=== PATIENT | female | born 1990 | race Caucasian/White ===

== ENCOUNTER 2016-08-20 13:24 | Outpatient (CLI) | payer MEDICARE, MEDICAID | END 2016-08-20 13:25 | disposition home or self-care (01) | DX: Z79.01 Long term (current) use of anticoagulants (principal); Z95.4 Presence of other heart-valve replacement; I34.0 Nonrheumatic mitral (valve) insufficiency ==

== ENCOUNTER 2016-08-21 10:05 | Outpatient (CLI) | payer MEDICARE, MEDICAID | END 2016-08-21 10:06 | disposition home or self-care (01) | DX: Z79.01 Long term (current) use of anticoagulants (principal); Z95.4 Presence of other heart-valve replacement; I31.0 Chronic adhesive pericarditis ==

== ENCOUNTER 2016-08-21 19:56 | Emergency (ER) | payer MEDICARE, MEDICAID ==
[2016-08-21] MEDS ORDERED: SODIUM CHLORIDE 0.9% 1,000 ML IV ONE (20:27)
== END 2016-08-21 23:50 | disposition home or self-care (01) ==
DX: I95.9 Hypotension, unspecified (principal); N28.9 Disorder of kidney and ureter, unspecified; Z99.2 Dependence on renal dialysis; I31.0 Chronic adhesive pericarditis; Z95.4 Presence of other heart-valve replacement; Z79.01 Long term (current) use of anticoagulants

== ENCOUNTER 2016-08-31 11:08 | Outpatient (CLI) | payer MEDICARE, MEDICAID | END 2016-08-31 11:09 | disposition home or self-care (01) | DX: Z79.01 Long term (current) use of anticoagulants (principal); Z95.4 Presence of other heart-valve replacement; I31.0 Chronic adhesive pericarditis ==

== ENCOUNTER 2016-09-04 11:15 | Outpatient (CLI) | payer MEDICARE, MEDICAID | END 2016-09-04 11:16 | disposition home or self-care (01) | DX: Z79.01 Long term (current) use of anticoagulants (principal); Z95.4 Presence of other heart-valve replacement; I31.0 Chronic adhesive pericarditis ==

== ENCOUNTER 2016-09-12 12:01 | Outpatient (CLI) | payer MEDICARE, MEDICAID | END 2016-09-12 12:02 | disposition home or self-care (01) | DX: I31.0 Chronic adhesive pericarditis (principal); Z95.4 Presence of other heart-valve replacement; Z79.01 Long term (current) use of anticoagulants ==

== ENCOUNTER 2016-09-19 09:58 | Outpatient (CLI) | payer MEDICARE, MEDICAID | END 2016-09-19 09:59 | disposition home or self-care (01) | LOC: LAB 09:58 | PROVIDERS: ATTEND Pharmacist | DX: Z95.4 Presence of other heart-valve replacement (principal); I31.0 Chronic adhesive pericarditis; Z79.01 Long term (current) use of anticoagulants | CPT/HCPCS: 85610 ==

== ENCOUNTER 2016-09-26 13:16 | Outpatient (CLI) | payer MEDICARE, MEDICAID | END 2016-09-26 13:17 | disposition home or self-care (01) | LOC: LAB 13:16 | PROVIDERS: ATTEND Pharmacist | DX: I31.0 Chronic adhesive pericarditis (principal); Z95.4 Presence of other heart-valve replacement; Z79.01 Long term (current) use of anticoagulants | CPT/HCPCS: 85610 ==

== ENCOUNTER 2016-10-03 12:19 | Outpatient (CLI) | payer MEDICARE, MEDICAID | END 2016-10-03 12:20 | disposition home or self-care (01) | LOC: LAB 12:19 | PROVIDERS: ATTEND Pharmacist | DX: I31.0 Chronic adhesive pericarditis (principal); Z95.4 Presence of other heart-valve replacement; Z79.01 Long term (current) use of anticoagulants | CPT/HCPCS: 85610 ==

== ENCOUNTER 2016-10-22 12:40 | Outpatient (CLI) | payer MEDICARE, MEDICAID | END 2016-10-22 12:41 | disposition home or self-care (01) | LOC: LAB 12:40 | PROVIDERS: ATTEND Pharmacist | DX: I31.0 Chronic adhesive pericarditis (principal); Z95.4 Presence of other heart-valve replacement; Z79.01 Long term (current) use of anticoagulants | CPT/HCPCS: 85610 ==

== ENCOUNTER 2016-11-02 14:29 | Outpatient (CLI) | payer MEDICARE, MEDICAID | END 2016-11-02 14:30 | disposition home or self-care (01) | LOC: LAB 14:29 | PROVIDERS: ATTEND Pharmacist | DX: I31.0 Chronic adhesive pericarditis (principal); Z79.01 Long term (current) use of anticoagulants; Z95.4 Presence of other heart-valve replacement | CPT/HCPCS: 85610 ==

== ENCOUNTER 2016-11-19 14:14 | Outpatient (CLI) | payer MEDICARE, MEDICAID | END 2016-11-19 14:15 | disposition home or self-care (01) | LOC: LAB 14:14 | PROVIDERS: ATTEND Pharmacist | DX: I31.0 Chronic adhesive pericarditis (principal); Z95.4 Presence of other heart-valve replacement; Z79.01 Long term (current) use of anticoagulants | CPT/HCPCS: 85610 ==

== ENCOUNTER 2016-12-03 14:16 | Outpatient (CLI) | payer MEDICARE, MEDICAID | END 2016-12-03 14:17 | disposition home or self-care (01) | LOC: LAB 14:16 | PROVIDERS: ATTEND Pharmacist | DX: I31.0 Chronic adhesive pericarditis (principal); Z95.4 Presence of other heart-valve replacement; Z79.01 Long term (current) use of anticoagulants | CPT/HCPCS: 85610 ==

== ENCOUNTER 2016-12-13 13:44 | Outpatient (CLI) | payer MEDICARE, MEDICAID ==
--- NOTE | 2016-12-13 17:51 | XRAY Report ---
TWO-VIEW CHEST: 12/13/2016 CLINICAL INDICATION: Cough. COMPARISON: 08/21/2016 FINDINGS: Frontal and lateral views of the chest demonstrate changes of previous cardiac surgery. T here is a right basilar infiltrate present, with trace right effusion. No pneumothorax. IMPRESSION: RIGHT BASILAR INFILTRATE WITH TRACE RIGHT EFFUSION. JOB #: [id number] EXT JOB #:[id number]
== END 2016-12-13 13:45 | disposition home or self-care (01) ==
LOC: DI 13:44
PROVIDERS: ATTEND Family Medicine
DX: R05 Cough (principal)
CPT/HCPCS: 71020

== ENCOUNTER 2016-12-19 13:54 | Outpatient (CLI) | payer MEDICARE, MEDICAID | END 2016-12-19 13:55 | disposition home or self-care (01) | LOC: LAB 13:54 | PROVIDERS: ATTEND Pharmacist | DX: I31.0 Chronic adhesive pericarditis (principal); Z95.4 Presence of other heart-valve replacement; Z79.01 Long term (current) use of anticoagulants | CPT/HCPCS: 85610 ==

== ENCOUNTER 2017-01-09 14:56 | Outpatient (CLI) | payer MEDICARE, MEDICAID | END 2017-01-09 14:57 | disposition home or self-care (01) | LOC: LAB 14:56 | PROVIDERS: ATTEND Pharmacist | DX: I31.0 Chronic adhesive pericarditis (principal); Z95.4 Presence of other heart-valve replacement; Z79.01 Long term (current) use of anticoagulants | CPT/HCPCS: 85610 ==

== ENCOUNTER 2017-01-23 11:30 | Outpatient (CLI) | payer MEDICARE, MEDICAID | END 2017-01-23 11:31 | disposition home or self-care (01) | LOC: LAB 11:30 | PROVIDERS: ATTEND Pharmacist | DX: Z95.4 Presence of other heart-valve replacement (principal); Z79.01 Long term (current) use of anticoagulants; I31.0 Chronic adhesive pericarditis | CPT/HCPCS: 85610 ==

== ENCOUNTER 2017-01-30 16:12 | Outpatient (CLI) | payer MEDICARE, MEDICAID | END 2017-01-30 16:13 | disposition home or self-care (01) | LOC: LAB 16:12 | PROVIDERS: ATTEND Pharmacist | DX: I31.0 Chronic adhesive pericarditis (principal); Z79.01 Long term (current) use of anticoagulants; Z95.4 Presence of other heart-valve replacement | CPT/HCPCS: 85610 ==

== ENCOUNTER 2017-02-13 12:48 | Outpatient (CLI) | payer MEDICARE, MEDICAID | END 2017-02-13 12:49 | disposition home or self-care (01) | LOC: LAB 12:48 | PROVIDERS: ATTEND Pharmacist | DX: Z79.01 Long term (current) use of anticoagulants (principal); Z95.4 Presence of other heart-valve replacement; I31.0 Chronic adhesive pericarditis | CPT/HCPCS: 85610 ==

== ENCOUNTER 2017-03-26 09:49 | Outpatient (CLI) | payer MEDICARE, MEDICAID | END 2017-03-26 09:50 | disposition home or self-care (01) | LOC: LAB 09:49 | PROVIDERS: ATTEND Pharmacist | DX: I31.0 Chronic adhesive pericarditis (principal); Z95.4 Presence of other heart-valve replacement; Z79.01 Long term (current) use of anticoagulants | CPT/HCPCS: 85610 ==

== ENCOUNTER 2017-04-24 09:54 | Outpatient (CLI) | payer MEDICARE, MEDICAID | END 2017-04-24 09:55 | disposition home or self-care (01) | LOC: LAB 09:54 | PROVIDERS: ATTEND Pharmacist | DX: I31.0 Chronic adhesive pericarditis (principal); Z79.01 Long term (current) use of anticoagulants; Z95.4 Presence of other heart-valve replacement | CPT/HCPCS: 85610 ==

== ENCOUNTER 2017-05-23 09:46 | Outpatient (CLI) | payer MEDICARE, MEDICAID | END 2017-05-23 09:47 | disposition home or self-care (01) | LOC: LAB 09:46 | PROVIDERS: ATTEND Pharmacist | DX: Z79.01 Long term (current) use of anticoagulants (principal); Z95.4 Presence of other heart-valve replacement; I31.0 Chronic adhesive pericarditis | CPT/HCPCS: 85610 ==

== ENCOUNTER 2017-06-13 11:47 | Outpatient (CLI) | payer MEDICARE, MEDICAID | END 2017-06-13 11:48 | disposition home or self-care (01) | LOC: LAB 11:47 | PROVIDERS: ATTEND Pharmacist | DX: Z79.01 Long term (current) use of anticoagulants (principal); Z95.4 Presence of other heart-valve replacement; I31.0 Chronic adhesive pericarditis | CPT/HCPCS: 85610 ==

== ENCOUNTER 2017-06-28 12:21 | Outpatient (CLI) | payer MEDICARE, MEDICAID | END 2017-06-28 12:22 | disposition home or self-care (01) | LOC: LAB 12:21 | PROVIDERS: ATTEND Pharmacist | DX: I31.0 Chronic adhesive pericarditis (principal); Z79.01 Long term (current) use of anticoagulants; Z95.4 Presence of other heart-valve replacement | CPT/HCPCS: 85610 ==

== ENCOUNTER 2017-07-08 13:23 | Outpatient (CLI) | payer MEDICARE, MEDICAID ==
[2017-07-08 14:10] LABS: PT - PROTHROMBIN TIME 61.6 secs (9.9-12.6)
[2017-07-08 14:35] LABS: INR 5.8 (0.8-1.2)
== END 2017-07-08 13:24 | disposition home or self-care (01) ==
LOC: LAB 13:23
PROVIDERS: ATTEND Pharmacist
DX: I31.0 Chronic adhesive pericarditis (principal); Z79.01 Long term (current) use of anticoagulants; Z95.4 Presence of other heart-valve replacement
CPT/HCPCS: 36415; 85610

== ENCOUNTER 2017-07-10 09:53 | Outpatient (CLI) | payer MEDICARE, MEDICAID ==
[2017-07-10 10:41] LABS: INR 4.2 (0.8-1.2)
== END 2017-07-10 09:54 | disposition home or self-care (01) ==
LOC: LAB 09:53
PROVIDERS: ATTEND Pharmacist
DX: I31.0 Chronic adhesive pericarditis (principal); Z95.4 Presence of other heart-valve replacement; Z79.01 Long term (current) use of anticoagulants
CPT/HCPCS: 85610

== ENCOUNTER 2017-07-17 11:07 | Outpatient (CLI) | payer MEDICARE, MEDICAID ==
[2017-07-17 11:52] LABS: INR 4.2 (0.8-1.2); PT - PROTHROMBIN TIME 44.9 secs (9.9-12.6)
== END 2017-07-17 11:08 | disposition home or self-care (01) ==
LOC: LAB 11:07
PROVIDERS: ATTEND Pharmacist
DX: I31.0 Chronic adhesive pericarditis (principal); Z95.4 Presence of other heart-valve replacement; Z79.01 Long term (current) use of anticoagulants
CPT/HCPCS: 85610

== ENCOUNTER 2017-07-25 07:59 | Outpatient (CLI) | payer MEDICARE, MEDICAID | END 2017-07-25 08:00 | disposition home or self-care (01) | LOC: LAB 07:59 | PROVIDERS: ATTEND Pharmacist | DX: I31.0 Chronic adhesive pericarditis (principal); Z79.01 Long term (current) use of anticoagulants; Z95.4 Presence of other heart-valve replacement | CPT/HCPCS: 85610 ==

== ENCOUNTER 2017-08-01 10:54 | Emergency (ER) | payer MEDICARE, MEDICAID ==
--- NOTE | 2017-08-01 12:09 | ED Physician Documentation ---
PD HPI ABD PAIN - Stated complaint Stated Complaint: LOW BP - Chief complaint Chief Complaint: General - History obtained from History obtained from: Patient - History of Present Illness Timing - onset: How many weeks ago (1) Timing - duration: Weeks Quality: Other (just noting blood in her dialysate, steady amount, enough to make fluid opaque red.). No: Cramping, Aching, Pain Location: Other (she is not having abd pain, and says it does not feel like peritonitis she has had in the past. [facility] and by JOVANI Daniel. Had blood count a few days ago that was 8.9 Hgb. Has had continued blood in her dialysate and feeling weaker. She noted her BP to be low at 60 systolic this mrbarbi. Talked with Dr. Daniel who wanted her to come to ER to get IV fluids for her BP and likely transfer to [place].) Radiation: No: Chest, Lower back Improved by: No: Position Worsened by: No: Moving, Breathing, Palpation Associated symptoms: Nausea, Near syncope / syncope (lightheaded with standing the past 1-2 days, worse today.). No: Fever, Vomiting, Diarrhea, Constipation, Chest pain, Loss of appetite Similar symptoms before: Has not had sx before Recently seen: Clinic Review of Systems Constitutional: denies: Fever, Chills, Myalgias Nose: denies: Rhinorrhea / runny nose, Congestion Throat: denies: Sore throat Respiratory: denies: Cough GI: reports: Nausea. denies: Abdominal Pain, Vomiting, Diarrhea : denies: Frequency, Hesitancy Skin: denies: Rash, Lesions Neurologic: reports: Generalized weakness, Near syncope. denies: Focal weakness , Numbness, Syncope Endocrine: reports: Easy bruising / bleeding. denies: Weight loss PD PAST MEDICAL HISTORY - Past Medical History Cardiovascular: Valve disorder, Other : Dialysis, Renal insuffiency - Past Surgical History Past Surgical History: Yes Cardiovascular: Valve replacement - Present Medications Home Medications: Ambulatory Orders Medication Instructions Recorded Confirmed Calcium Acetate 2,001 mg PO TID 06/11/15 06/11/15 Cinacalcet HCl [Sensipar] 90 mg PO BID 06/11/15 06/11/15 Epoetin Kody [Epogen] 10,000 unit IM ONCE 02/06/16 02/06/16 Folic Acid/Vit Bcomp,C 0.8 mg PO DAILY 06/11/15 06/11/15 [Nephro-Jose Tablet] - Allergies Allergies/Adverse Reactions: Allergies Allergy/AdvReac Type Severity Reaction Status Date / Time valproic acid Allergy Hives Verified 06/11/15 08:22 - Social History Does the pt smoke?: No Smoking Status: Never smoker Does the pt drink ETOH?: No Does the pt have substance abuse?: No - Immunizations Immunizations are current?: Yes PD ED PE NORMAL - Vitals Vital signs reviewed: Yes - General General: Alert and oriented X 3, No acute distress, Well developed/nourished - HEENT HEENT: Moist mucous membranes, Pharynx benign - Neck Neck: Supple, no meningeal sign, No adenopathy - Cardiac Cardiac: RRR, No murmur - Respiratory Respiratory: Clear bilaterally - Abdomen Abdomen: Normal bowel sounds, Soft, Non tender, Non distended, No organomegaly, Other (dialysis port in place; no signs of infection around it. Her abdomen is not tender and no percussion nor rebound tenderness. ) - Back Back: No CVA TTP - Derm Derm: Normal color, Warm and dry - Extremities Extremities: No deformity, Normal ROM s pain, No edema, No calf tenderness / cord - Neuro Neuro: Alert and oriented X 3, No motor deficit, No sensory deficit, Normal speech - Psych Psych: Normal mood, Normal affect Results - Vitals Vitals: Vital Signs - 24 hr 08/01/17 08/01/17 08/01/17 11:00 12:29 14:26 Temperature 36.2 C L Heart Rate 101 H Heart Rate [ 97 Sitting] Heart Rate [ 104 H Standing] Heart Rate [ 88 Supine] Respiratory 16 Rate Blood Pressure 107/61 Blood Pressure 114/68 [Sitting] Blood Pressure 65/39 L [Standing] Blood Pressure 129/67 [Supine] O2 Saturation 100 08/01/17 15:11 Temperature Heart Rate 93 Heart Rate [ Sitting] Heart Rate [ Standing] Heart Rate [ Supine] Respiratory 15 Rate Blood Pressure 114/49 L Blood Pressure [Sitting] Blood Pressure [Standing] Blood Pressure [Supine] O2 Saturation 100 Oxygen O2 Source Room air - Labs Labs: Laboratory Tests 08/01/17 08/01/17 08/01/17 11:27 11:27 11:27 WBC 12.6 H RBC 2.13 L Hgb 7.0 L* Hct 20.6 L MCV 96.4 MCH 33.0 H MCHC 34.2 RDW 15.4 H Plt Count 203 MPV 8.9 PT INR APTT Sodium 129 L Potassium 3.6 Chloride 87 L Carbon Dioxide 26 Anion Gap 16.0 H BUN 47 H Creatinine 14.6 H* Estimated GFR (MDRD) 3 L Glucose 111 H Calcium 8.5 Phosphorus Magnesium Total Bilirubin 0.4 AST 14 ALT 14 Alkaline Phosphatase 85 Lactate Dehydrogenase Total Protein 6.7 Albumin 3.4 Globulin 3.3 Albumin/Globulin Ratio 1.0 Lipase 27 Blood Type O POSITIVE Antibody Screen POSITIVE Antibody Identification Anti-S 08/01/17 08/01/17 08/01/17 11:27 11:45 12:06 WBC RBC Hgb Hct MCV MCH MCHC RDW Plt Count MPV PT 36.3 H INR 3.4 H APTT 43.8 H Sodium Potassium Chloride Carbon Dioxide Anion Gap BUN Creatinine Estimated GFR (MDRD) Glucose Calcium Phosphorus 7.9 H Magnesium 1.8 Total Bilirubin AST ALT Alkaline Phosphatase Lactate Dehydrogenase 204 Total Protein Albumin Globulin Albumin/Globulin Ratio Lipase Blood Type Antibody Screen Antibody Identification PD MEDICAL DECISION MAKING - ED course Complexity details: considered differential, d/w patient, d/w [employer] consultant (JOVANI Daniel - He had wanted us to give IV fluids in order to improve her blood pressure. He initially suggested we get CT scan of the abdomen and could potentially transfuse her here. However her blood count was dropping steadily over the last several days to week and so there needed to be some potential intervention to decrease the bleeding. He therefore was going to direct admit her in [facility]. We will transfer her over there. Her blood pressure was improved though she still dropped with standing. I offered EMS transfer of her to [facility] but she and her mother would prefer to go by private vehicle and she feels okay with just sitting in up. Given the transfer to [facility], Dr. Mallory said to hold off on any transfusion or CT scans here and he would take care of those in [place]. Patient is transferred in stable condition.) Departure - Departure Disposition: 02 Transfer Acute Care Hosp Clinical Impression: Acute bleeding, Postural hypotension Anemia Qualifiers: Anemia type: unspecified type Qualified Code(s): D64.9 - Anemia, unspecified Chronic renal failure Qualifiers: Chronic kidney disease stage: unspecified stage Qualified Code(s): N18.9 - Chronic kidney disease, unspecified Condition: Stable Record reviewed to determine appropriate education?: Yes
[2017-08-01 12:16] LABS: MEAN CORPUSCULAR HGB CONC 34.2 g/dL (32.0-36.0); MEAN CORPUSCULAR VOLUME 96.4 fL (81.0-99.0); MEAN PLATELET VOLUME 8.9 fL (7.9-10.8); RED BLOOD COUNT 2.13 10^6/uL (4.20-5.40); RED CELL DISTRIBUTION WIDTH 15.4 % (12.0-15.0); WHITE BLOOD COUNT 12.6 x10^3/uL (4.8-10.8)
[2017-08-01 12:27] LABS: INR 3.4 (0.8-1.2); PT - PROTHROMBIN TIME 36.3 secs (9.9-12.6)
[2017-08-01 12:33] LABS: ALBUMIN 3.4 g/dL (3.2-5.5); BILIRUBIN,TOTAL 0.4 mg/dL (0.2-1.0); CALCIUM 8.5 mg/dL (8.5-10.3); TOTAL PROTEIN 6.7 g/dL (6.7-8.2)
[2017-08-01 12:34] LABS: CREATININE 14.6 mg/dL (0.4-1.0)
[2017-08-01] MEDS ORDERED: SODIUM CHLORIDE 0.9% 500 ML IV ONE (12:37)
[2017-08-01 12:55] LABS: MAGNESIUM 1.8 mg/dL (1.7-2.8); PHOSPHORUS 7.9 mg/dL (2.5-4.6)
[2017-08-01] MEDS ORDERED: SODIUM CHLORIDE 0.9% 1,000 ML IV ONE (14:39)
[2017-08-01 15:12] VITALS: BP 114/49
== END 2017-08-01 15:51 | disposition short-term general hospital (02) ==
LOC: ED 10:54
DX: R58 Hemorrhage, not elsewhere classified (principal); I95.1 Orthostatic hypotension; D64.9 Anemia, unspecified; N18.9 Chronic kidney disease, unspecified; Z99.2 Dependence on renal dialysis; Z95.2 Presence of prosthetic heart valve
CPT/HCPCS: 36415; 80053; 83615; 83690; 83735; 84100; 85610; 85730; 86850; 86870; 86900; 86901; 96360; 96361; 99284

== ENCOUNTER 2017-08-19 11:09 | Outpatient (CLI) | payer MEDICARE, MEDICAID | END 2017-08-19 11:10 | disposition home or self-care (01) | LOC: LAB 11:09 | PROVIDERS: ATTEND Internal Medicine Cardiovascular Disease | DX: I31.0 Chronic adhesive pericarditis (principal); Z79.01 Long term (current) use of anticoagulants; Z95.4 Presence of other heart-valve replacement | CPT/HCPCS: 85610 ==

== ENCOUNTER 2017-08-27 09:24 | Outpatient (CLI) | payer MEDICARE, MEDICAID | END 2017-08-27 09:25 | disposition home or self-care (01) | LOC: LAB 09:24 | PROVIDERS: ATTEND Internal Medicine Cardiovascular Disease | DX: Z79.01 Long term (current) use of anticoagulants (principal); Z95.4 Presence of other heart-valve replacement; I31.0 Chronic adhesive pericarditis | CPT/HCPCS: 85610 ==

== ENCOUNTER 2017-09-03 11:31 | Outpatient (CLI) | payer MEDICARE, MEDICAID | END 2017-09-03 11:32 | disposition home or self-care (01) | LOC: LAB 11:31 | PROVIDERS: ATTEND Internal Medicine Cardiovascular Disease | DX: Z79.01 Long term (current) use of anticoagulants (principal); Z95.4 Presence of other heart-valve replacement; I31.0 Chronic adhesive pericarditis | CPT/HCPCS: 85610 ==

== ENCOUNTER 2017-09-10 10:44 | Outpatient (CLI) | payer MEDICARE, MEDICAID ==
[2017-09-10 11:38] LABS: PT - PROTHROMBIN TIME 48.5 secs (9.9-12.6)
[2017-09-10 11:42] LABS: INR 4.5 (0.8-1.2)
== END 2017-09-10 10:45 | disposition home or self-care (01) ==
LOC: LAB 10:44
PROVIDERS: ATTEND Internal Medicine Cardiovascular Disease
DX: I31.0 Chronic adhesive pericarditis (principal); Z95.4 Presence of other heart-valve replacement; Z79.01 Long term (current) use of anticoagulants
CPT/HCPCS: 36415; 85610

== ENCOUNTER 2017-09-23 10:21 | Outpatient (CLI) | payer MEDICARE, MEDICAID | END 2017-09-23 10:22 | disposition home or self-care (01) | LOC: LAB 10:21 | PROVIDERS: ATTEND Internal Medicine Cardiovascular Disease | DX: I31.0 Chronic adhesive pericarditis (principal); Z79.01 Long term (current) use of anticoagulants; Z95.4 Presence of other heart-valve replacement | CPT/HCPCS: 85610 ==

== ENCOUNTER 2017-10-01 10:12 | Outpatient (CLI) | payer MEDICARE, MEDICAID | END 2017-10-01 10:13 | disposition home or self-care (01) | LOC: LAB 10:12 | PROVIDERS: ATTEND Internal Medicine Cardiovascular Disease | DX: I31.0 Chronic adhesive pericarditis (principal); Z79.01 Long term (current) use of anticoagulants; Z95.4 Presence of other heart-valve replacement | CPT/HCPCS: 85610 ==

== ENCOUNTER 2017-10-09 14:51 | Outpatient (CLI) | payer MEDICARE, MEDICAID | END 2017-10-09 14:52 | disposition home or self-care (01) | LOC: LAB 14:51 | PROVIDERS: ATTEND Internal Medicine Cardiovascular Disease | DX: Z79.01 Long term (current) use of anticoagulants (principal); Z65.4 Victim of crime and terrorism; I31.0 Chronic adhesive pericarditis | CPT/HCPCS: 85610 ==

== ENCOUNTER 2017-10-11 12:49 | Outpatient (CLI) | payer MEDICARE, MEDICAID | END 2017-10-11 12:50 | disposition home or self-care (01) | LOC: LAB 12:49 | PROVIDERS: ATTEND Pharmacist | DX: I34.0 Nonrheumatic mitral (valve) insufficiency (principal); Z95.4 Presence of other heart-valve replacement; Z79.01 Long term (current) use of anticoagulants | CPT/HCPCS: 85610 ==

== ENCOUNTER 2017-10-16 10:22 | Outpatient (CLI) | payer MEDICARE, MEDICAID | END 2017-10-16 10:23 | disposition home or self-care (01) | LOC: LAB 10:22 | PROVIDERS: ATTEND Pharmacist | DX: Z79.01 Long term (current) use of anticoagulants (principal); Z65.4 Victim of crime and terrorism; I34.0 Nonrheumatic mitral (valve) insufficiency | CPT/HCPCS: 85610 ==

== ENCOUNTER 2017-10-21 11:29 | Outpatient (CLI) | payer MEDICARE, MEDICAID | END 2017-10-21 11:30 | disposition home or self-care (01) | LOC: LAB 11:29 | PROVIDERS: ATTEND Pharmacist | DX: I34.0 Nonrheumatic mitral (valve) insufficiency (principal); Z79.01 Long term (current) use of anticoagulants; Z95.4 Presence of other heart-valve replacement | CPT/HCPCS: 85610 ==

== ENCOUNTER 2017-10-28 12:07 | Outpatient (CLI) | END 2017-10-28 12:08 | disposition home or self-care (01) ==

== ENCOUNTER 2017-10-30 11:54 | Outpatient (CLI) | payer MEDICARE, MEDICAID | END 2017-10-30 11:55 | disposition home or self-care (01) | LOC: LAB 11:54 | PROVIDERS: ATTEND Pharmacist | DX: I34.0 Nonrheumatic mitral (valve) insufficiency (principal); Z79.01 Long term (current) use of anticoagulants; Z95.4 Presence of other heart-valve replacement | CPT/HCPCS: 85610 ==

== ENCOUNTER 2017-11-01 10:33 | Outpatient (CLI) | payer MEDICARE, MEDICAID | END 2017-11-01 10:34 | disposition home or self-care (01) | LOC: LAB 10:33 | PROVIDERS: ATTEND Pharmacist | DX: Z79.01 Long term (current) use of anticoagulants (principal); Z95.4 Presence of other heart-valve replacement; I34.0 Nonrheumatic mitral (valve) insufficiency | CPT/HCPCS: 85610 ==

== ENCOUNTER 2017-11-07 10:25 | Outpatient (CLI) | payer MEDICARE, MEDICAID | END 2017-11-07 10:26 | disposition home or self-care (01) | LOC: LAB 10:25 | PROVIDERS: ATTEND Pharmacist | DX: I34.0 Nonrheumatic mitral (valve) insufficiency (principal); Z95.4 Presence of other heart-valve replacement; Z79.01 Long term (current) use of anticoagulants | CPT/HCPCS: 85610 ==

== ENCOUNTER 2017-11-12 09:48 | Outpatient (CLI) | payer MEDICARE, MEDICAID | END 2017-11-12 09:49 | disposition home or self-care (01) | LOC: LAB 09:48 | PROVIDERS: ATTEND Pharmacist | DX: I34.0 Nonrheumatic mitral (valve) insufficiency (principal); Z95.4 Presence of other heart-valve replacement; Z79.01 Long term (current) use of anticoagulants | CPT/HCPCS: 85610 ==

== ENCOUNTER 2017-11-18 11:38 | Outpatient (CLI) | payer MEDICARE, MEDICAID | END 2017-11-18 11:39 | disposition home or self-care (01) | LOC: LAB 11:38 | PROVIDERS: ATTEND Pharmacist | DX: I34.0 Nonrheumatic mitral (valve) insufficiency (principal); Z95.4 Presence of other heart-valve replacement; Z79.01 Long term (current) use of anticoagulants | CPT/HCPCS: 85610 ==

== ENCOUNTER 2017-11-22 12:33 | Outpatient (CLI) | payer MEDICARE, MEDICAID | END 2017-11-22 12:34 | disposition home or self-care (01) | LOC: LAB 12:33 | PROVIDERS: ATTEND Pharmacist | DX: Z79.01 Long term (current) use of anticoagulants (principal); Z95.4 Presence of other heart-valve replacement; I34.0 Nonrheumatic mitral (valve) insufficiency | CPT/HCPCS: 85610 ==

== ENCOUNTER 2017-12-04 11:25 | Outpatient (CLI) | payer MEDICARE, MEDICAID | END 2017-12-04 11:26 | disposition home or self-care (01) | LOC: LAB 11:25 | PROVIDERS: ATTEND Pharmacist | DX: I34.0 Nonrheumatic mitral (valve) insufficiency (principal); Z95.4 Presence of other heart-valve replacement; Z79.01 Long term (current) use of anticoagulants | CPT/HCPCS: 85610 ==

== ENCOUNTER 2017-12-09 12:26 | Outpatient (CLI) | payer MEDICARE, MEDICAID | END 2017-12-09 12:27 | disposition home or self-care (01) | LOC: LAB 12:26 | PROVIDERS: ATTEND Pharmacist | DX: I34.0 Nonrheumatic mitral (valve) insufficiency (principal); Z79.01 Long term (current) use of anticoagulants; Z95.4 Presence of other heart-valve replacement | CPT/HCPCS: 85610 ==

== ENCOUNTER 2017-12-19 10:16 | Outpatient (CLI) | payer MEDICARE, MEDICAID | END 2017-12-19 10:17 | disposition home or self-care (01) | LOC: LAB 10:16 | PROVIDERS: ATTEND Pharmacist | DX: Z79.01 Long term (current) use of anticoagulants (principal); Z95.4 Presence of other heart-valve replacement; I34.0 Nonrheumatic mitral (valve) insufficiency | CPT/HCPCS: 85610 ==

== ENCOUNTER 2017-12-26 11:44 | Outpatient (CLI) | payer MEDICARE, MEDICAID | END 2017-12-26 11:45 | disposition home or self-care (01) | LOC: LAB 11:44 | PROVIDERS: ATTEND Pharmacist | DX: I34.0 Nonrheumatic mitral (valve) insufficiency (principal); Z79.01 Long term (current) use of anticoagulants; Z95.4 Presence of other heart-valve replacement | CPT/HCPCS: 85610 ==

== ENCOUNTER 2018-01-02 14:32 | Outpatient (CLI) | payer MEDICARE, MEDICAID | END 2018-01-02 14:33 | disposition home or self-care (01) | LOC: LAB 14:32 | PROVIDERS: ATTEND Pharmacist | DX: I34.0 Nonrheumatic mitral (valve) insufficiency (principal); Z79.01 Long term (current) use of anticoagulants; Z95.4 Presence of other heart-valve replacement | CPT/HCPCS: 85610 ==

== ENCOUNTER 2018-01-09 10:56 | Outpatient (CLI) | payer MEDICARE, MEDICAID | END 2018-01-09 10:57 | disposition home or self-care (01) | LOC: LAB 10:56 | PROVIDERS: ATTEND Pharmacist | DX: I34.0 Nonrheumatic mitral (valve) insufficiency (principal); Z95.4 Presence of other heart-valve replacement; Z79.01 Long term (current) use of anticoagulants | CPT/HCPCS: 85610 ==

== ENCOUNTER 2018-01-16 09:51 | Outpatient (CLI) | payer MEDICARE, MEDICAID | END 2018-01-16 09:52 | disposition home or self-care (01) | LOC: LAB 09:51 | PROVIDERS: ATTEND Pharmacist | DX: I34.0 Nonrheumatic mitral (valve) insufficiency (principal); Z95.4 Presence of other heart-valve replacement; Z79.01 Long term (current) use of anticoagulants | CPT/HCPCS: 85610 ==

== ENCOUNTER 2018-01-27 12:25 | Outpatient (CLI) | payer MEDICARE, MEDICAID | END 2018-01-27 12:26 | disposition home or self-care (01) | LOC: LAB 12:25 | PROVIDERS: ATTEND Pharmacist | DX: I34.0 Nonrheumatic mitral (valve) insufficiency (principal); Z79.01 Long term (current) use of anticoagulants; Z95.4 Presence of other heart-valve replacement | CPT/HCPCS: 85610 ==

== ENCOUNTER 2018-02-03 10:11 | Outpatient (CLI) | payer MEDICARE, MEDICAID | END 2018-02-03 10:12 | disposition home or self-care (01) | LOC: LAB 10:11 | PROVIDERS: ATTEND Pharmacist | DX: I34.0 Nonrheumatic mitral (valve) insufficiency (principal); Z79.01 Long term (current) use of anticoagulants; Z95.4 Presence of other heart-valve replacement | CPT/HCPCS: 85610 ==

== ENCOUNTER 2018-02-06 13:49 | Outpatient (CLI) | payer MEDICARE, MEDICAID | END 2018-02-06 13:50 | disposition home or self-care (01) | LOC: LAB 13:49 | PROVIDERS: ATTEND Pharmacist | DX: Z79.01 Long term (current) use of anticoagulants (principal); Z95.4 Presence of other heart-valve replacement; I34.0 Nonrheumatic mitral (valve) insufficiency | CPT/HCPCS: 85610 ==

== ENCOUNTER 2018-02-13 11:56 | Outpatient (CLI) | payer MEDICARE, MEDICAID ==
[2018-02-13 15:30] LABS: INR 4.1 (0.8-1.2); PT - PROTHROMBIN TIME 44.3 secs (9.9-12.6)
== END 2018-02-13 11:57 | disposition home or self-care (01) ==
LOC: LAB 11:56
PROVIDERS: ATTEND Pharmacist
DX: Z79.01 Long term (current) use of anticoagulants (principal); I34.0 Nonrheumatic mitral (valve) insufficiency; Z95.2 Presence of prosthetic heart valve
CPT/HCPCS: 36415; 85610

== ENCOUNTER 2018-02-20 10:39 | Outpatient (CLI) | payer MEDICARE, MEDICAID | END 2018-02-20 10:40 | disposition home or self-care (01) | LOC: LAB 10:39 | PROVIDERS: ATTEND Pharmacist | DX: Z79.01 Long term (current) use of anticoagulants (principal); Z95.4 Presence of other heart-valve replacement; I34.0 Nonrheumatic mitral (valve) insufficiency | CPT/HCPCS: 85610 ==

== ENCOUNTER 2018-02-27 10:49 | Outpatient (CLI) | payer MEDICARE, MEDICAID | END 2018-02-27 10:50 | disposition home or self-care (01) | LOC: LAB 10:49 | PROVIDERS: ATTEND Pharmacist | DX: Z79.01 Long term (current) use of anticoagulants (principal); Z95.4 Presence of other heart-valve replacement; I34.0 Nonrheumatic mitral (valve) insufficiency | CPT/HCPCS: 85610 ==

== ENCOUNTER 2018-03-17 10:21 | Outpatient (CLI) | payer MEDICARE, MEDICAID ==
[2018-03-17 11:01] LABS: INR 4.1 (0.8-1.2)
== END 2018-03-17 10:22 | disposition home or self-care (01) ==
LOC: LAB 10:21
PROVIDERS: ATTEND Pharmacist
DX: I34.0 Nonrheumatic mitral (valve) insufficiency (principal); Z79.01 Long term (current) use of anticoagulants; Z95.4 Presence of other heart-valve replacement
CPT/HCPCS: 36415; 85610

== ENCOUNTER 2018-03-21 13:00 | Outpatient (CLI) | payer MEDICARE, MEDICAID | END 2018-03-21 13:01 | disposition home or self-care (01) | LOC: LAB 13:00 | PROVIDERS: ATTEND Pharmacist | DX: I34.0 Nonrheumatic mitral (valve) insufficiency (principal); Z79.01 Long term (current) use of anticoagulants; Z95.4 Presence of other heart-valve replacement | CPT/HCPCS: 85610 ==

== ENCOUNTER 2018-03-24 10:27 | Outpatient (CLI) | payer MEDICARE, MEDICAID | END 2018-03-24 10:28 | disposition home or self-care (01) | LOC: LAB 10:27 | PROVIDERS: ATTEND Pharmacist | DX: I34.0 Nonrheumatic mitral (valve) insufficiency (principal); Z79.01 Long term (current) use of anticoagulants; Z95.4 Presence of other heart-valve replacement | CPT/HCPCS: 85610 ==

== ENCOUNTER 2018-03-31 12:11 | Outpatient (CLI) | payer MEDICARE, MEDICAID | END 2018-03-31 12:12 | disposition home or self-care (01) | LOC: LAB 12:11 | PROVIDERS: ATTEND Pharmacist | DX: I34.0 Nonrheumatic mitral (valve) insufficiency (principal); Z79.01 Long term (current) use of anticoagulants; Z95.4 Presence of other heart-valve replacement | CPT/HCPCS: 85610 ==

== ENCOUNTER 2018-04-07 13:48 | Outpatient (CLI) | payer MEDICARE, MEDICAID | END 2018-04-07 13:49 | disposition home or self-care (01) | LOC: LAB 13:48 | PROVIDERS: ATTEND Pharmacist | DX: I34.0 Nonrheumatic mitral (valve) insufficiency (principal); Z79.01 Long term (current) use of anticoagulants; Z95.4 Presence of other heart-valve replacement | CPT/HCPCS: 85610 ==

== ENCOUNTER 2018-04-14 10:10 | Outpatient (CLI) | payer MEDICARE, MEDICAID | END 2018-04-14 10:11 | disposition home or self-care (01) | LOC: LAB 10:10 | PROVIDERS: ATTEND Pharmacist | DX: Z79.01 Long term (current) use of anticoagulants (principal); Z95.4 Presence of other heart-valve replacement; I34.0 Nonrheumatic mitral (valve) insufficiency | CPT/HCPCS: 85610 ==

== ENCOUNTER 2018-04-18 09:21 | Outpatient (CLI) | payer MEDICARE, MEDICAID ==
--- NOTE | 2018-04-18 12:27 | Ultrasound Report ---
Reason: OTHER OVARIAN CYST,UNSPECIFIED SIDE,OTHER OVARIAN, Procedure Date: 04/18/2018 Accession Number: [id number] / [id number] Procedure: US - Pelvic w/Transvaginal CPT Code: FULL RESULT: EXAM: PELVIC ULTRASOUND EXAM DATE: 04/18/2018 10:22 AM. CLINICAL HISTORY: Other ovarian cyst,unspecified side, other ovarian. COMPARISON: None. TECHNIQUE: Realtime transabdominal pelvic scan performed to identify the uterus and adnexa and as an overview of other pelvic structures, followed by transvaginal scan to provide greater detail of the uterus and adnexa, with static image documentation. FINDINGS: Uterus: 8.0 x 2.8 x 3.9 cm, volume 46 cc. Anteverted position. Normal overall size and echotexture. Masses: None. Endometrium: 6 mm. Normal. Cervix: Unremarkable aside from a nabothian cyst. Right Ovary: 2.8 x 1.8 x 2.6 cm, volume 6.8 cc. Seen only in transabdominal fashion. Two cystic structures, the larger of which measures up to 1.9 cm are well within physiologic limits. Left Ovary: 3.0 x 1.6 x 1.8 cm, volume 4.5 cc. Seen only in transabdominal fashion, grossly unremarkable. Free Fluid: A large amount of free pelvic fluid is identified. Other: None. IMPRESSION: Ovaries are seen only in transabdominal fashion and no abnormal cyst is identified. A greater than physiologic quantity of free fluid is seen in the pelvis, appearance was simple. Possibly ruptured cyst though a nonspecific finding. [facility]
== END 2018-04-18 09:22 | disposition home or self-care (01) ==
LOC: DI 09:21
PROVIDERS: ATTEND Obstetrics & Gynecology
DX: N83.299 Other ovarian cyst, unspecified side (principal)
CPT/HCPCS: 76830; 76856

== ENCOUNTER 2018-04-21 12:05 | Outpatient (CLI) | payer MEDICARE, MEDICAID | END 2018-04-21 12:06 | disposition home or self-care (01) | LOC: LAB 12:05 | PROVIDERS: ATTEND Pharmacist | DX: Z79.01 Long term (current) use of anticoagulants (principal); Z95.4 Presence of other heart-valve replacement; I34.0 Nonrheumatic mitral (valve) insufficiency | CPT/HCPCS: 85610 ==

== ENCOUNTER 2018-04-30 11:48 | Outpatient (CLI) | payer MEDICARE, MEDICAID | END 2018-04-30 11:49 | disposition home or self-care (01) | LOC: LAB 11:48 | PROVIDERS: ATTEND Pharmacist | DX: I34.0 Nonrheumatic mitral (valve) insufficiency (principal); Z79.01 Long term (current) use of anticoagulants; Z95.4 Presence of other heart-valve replacement | CPT/HCPCS: 85610 ==

== ENCOUNTER 2018-05-14 11:50 | Outpatient (CLI) | payer MEDICARE, MEDICAID | END 2018-05-14 11:51 | disposition home or self-care (01) | LOC: LAB 11:50 | PROVIDERS: ATTEND Pharmacist | DX: I34.0 Nonrheumatic mitral (valve) insufficiency (principal); Z79.01 Long term (current) use of anticoagulants; Z95.4 Presence of other heart-valve replacement | CPT/HCPCS: 85610 ==

== ENCOUNTER 2018-08-25 10:17 | Outpatient (CLI) | payer MEDICARE, MEDICAID ==
[2018-08-25 11:03] LABS: ALBUMIN 4.3 g/dL (3.2-5.5); ALBUMIN/GLOBULIN RATIO 1.9 (1.0-2.2); BILIRUBIN,TOTAL 0.6 mg/dL (0.2-1.0); CALCIUM 9.9 mg/dL (8.5-10.3); CREATININE 1.3 mg/dL (0.4-1.0); MAGNESIUM 1.4 mg/dL (1.7-2.8); PHOSPHORUS 2.1 mg/dL (2.5-4.6); TOTAL PROTEIN 6.6 g/dL (6.7-8.2)
[2018-08-25 11:16] LABS: BILIRUBIN,URINE NEGATIVE (NEGATIVE); GLUCOSE, URINE (UA) NEGATIVE (NEGATIVE); KETONES,URINE (UA) NEGATIVE (NEGATIVE); LEUKOCYTE ESTERASE, URINE NEGATIVE (NEGATIVE); NITRITE,URINE NEGATIVE (NEGATIVE); OCCULT BLOOD,URINE LARGE (NEGATIVE); PROTEIN,URINE NEGATIVE (NEGATIVE); UROBILINOGEN,URINE 0.2 (NORMAL) E.U./dL (NORMAL)
[2018-08-25 11:19] LABS: CLARITY,URINE BLOODY (CLEAR)
[2018-08-25 11:26] LABS: INR 2.9 (0.8-1.2); PT - PROTHROMBIN TIME 31.7 secs (9.9-12.6)
[2018-08-25 11:43] LABS: BACTERIA,URINE Rare /HPF (None Seen); SQUAMOUS EPITHELIAL CELL,UR FEW Squamous (<= Few)
== END 2018-08-25 10:18 | disposition home or self-care (01) ==
LOC: LAB 10:17
PROVIDERS: ATTEND Student in an Organized Health Care Education/Training Program
DX: Z94.0 Kidney transplant status (principal); I34.0 Nonrheumatic mitral (valve) insufficiency; Z95.4 Presence of other heart-valve replacement; Z79.01 Long term (current) use of anticoagulants
CPT/HCPCS: 36415; 80053; 80197; 81001; 83735; 84100; 85610; 87086

== ENCOUNTER 2018-09-01 10:30 | Outpatient (CLI) | payer MEDICARE, MEDICAID ==
[2018-09-01 10:43] LABS: BASOPHILS # (AUTO) 0.1 10^3/uL (0.0-0.1); BASOPHILS % (AUTO) 1.3 %; EOSINOPHILS % (AUTO) 0.4 %; HGB - HEMOGLOBIN 14.3 g/dL (12.0-16.0); LYMPHOCYTES % (AUTO) 16.4 %; MEAN CORPUSCULAR HEMOGLOBIN 34.2 pg (27.0-31.0); MEAN CORPUSCULAR HGB CONC 33.2 g/dL (32.0-36.0); MEAN PLATELET VOLUME 8.6 fL (7.9-10.8); MONOCYTES # (AUTO) 0.2 10^3/uL (0.0-1.0); MONOCYTES % (AUTO) 2.7 %; NEUTROPHILS # (AUTO) 4.9 10^3/uL (1.5-6.6); NEUTROPHILS % (AUTO) 79.2 %; PLT - PLATELET COUNT 158 10^3/uL (130-450); RED BLOOD COUNT 4.17 10^6/uL (4.20-5.40); RED CELL DISTRIBUTION WIDTH 13.7 % (12.0-15.0); WHITE BLOOD COUNT 6.1 x10^3/uL (4.8-10.8)
[2018-09-01 10:51] LABS: CALCIUM 10.1 mg/dL (8.5-10.3); CREATININE 1.1 mg/dL (0.4-1.0)
== END 2018-09-01 10:31 | disposition home or self-care (01) ==
LOC: LAB 10:30
PROVIDERS: ATTEND Internal Medicine Nephrology
DX: N05.9 Unspecified nephritic syndrome with unspecified morphologic changes (principal); D70.9 Neutropenia, unspecified; D63.1 Anemia in chronic kidney disease; T86.10 Unspecified complication of kidney transplant
CPT/HCPCS: 36415; 80048; 80197; 85025

== ENCOUNTER 2018-09-08 13:13 | Outpatient (CLI) | payer MEDICARE, MEDICAID | END 2018-09-08 13:14 | disposition home or self-care (01) | LOC: LAB 13:13 | PROVIDERS: ATTEND Pharmacist | DX: I34.0 Nonrheumatic mitral (valve) insufficiency (principal); Z79.01 Long term (current) use of anticoagulants; Z95.4 Presence of other heart-valve replacement | CPT/HCPCS: 85610 ==